=== PATIENT | male | born 1995 | race African-American/Black ===

== ENCOUNTER 2018-05-29 13:16 | Emergency (ER) | payer SELFPAY | END 2018-05-29 17:27 | disposition left against medical advice (07) | LOC: FTE 13:16 | DX: Z53.21 Procedure and treatment not carried out due to patient leaving prior to being seen by health care provider (principal) ==

== ENCOUNTER 2018-06-14 23:32 | Emergency (ER) | payer MEDICAID ==
[2018-06-15 04:20] LABS: ADD MAN DIFF? NO
[2018-06-15 04:22] LABS: WHITE BLOOD COUNT 6.8 10^3/ul (4.8-10.8)
[2018-06-15 04:22] LABS: BASOPHILS % 0.6 % (0.0-2.0); EOSINOPHILS # 0.4 10^3/ul (0.0-0.5); EOSINOPHILS % 5.4 % (0.0-7.0); HEMATOCRIT 40.2 % (42.0-52.0); HEMOGLOBIN 13.6 g/dl (14.0-18.0); LYMPHOCYTES # 2.2 10^3/ul (0.8-2.9); LYMPHOCYTES % 31.9 % (15.0-51.0); MEAN CORPUSCULAR HEMOGLOBIN 30.2 pg (29.0-33.0); MEAN CORPUSCULAR HGB CONC 33.8 g/dl (32.0-37.0); MEAN CORPUSCULAR VOLUME 89.3 fl (82.0-101.0); MEAN PLATELET VOLUME 9.2 fl (7.4-10.4); MONOCYTE # 0.8 10^3/ul (0.3-0.9); MONOCYTES % 12.1 % (0.0-11.0); NEUTROPHIL # 3.4 10^3/ul (1.6-7.5); NEUTROPHILS % 49.7 % (39.0-77.0); PLATELET COUNT 250 10^3/UL (140-415); RED CELL DISTRIBUTION WIDTH 13.6 % (11.5-14.5)
[2018-06-15 04:38] LABS: ANION GAP 12 (5-13); BLOOD UREA NITROGEN 11 mg/dl (7-20); CALCIUM 9.3 mg/dl (8.4-10.2); CARBON DIOXIDE 26 mmol/L (21-31); CHLORIDE 106 mmol/L (97-110); CREATININE 0.86 mg/dl (0.61-1.24); Estimated GFR > 60 mL/min (>60); GLUCOSE 90 mg/dl (70-220); POTASSIUM 3.4 mmol/L (3.5-5.1); SODIUM 144 mmol/L (135-144)
== END 2018-06-15 05:24 | disposition home or self-care (01) ==
LOC: FTE 23:32
DX: R42 Dizziness and giddiness (principal); R07.89 Other chest pain; J45.909 Unspecified asthma, uncomplicated; F17.210 Nicotine dependence, cigarettes, uncomplicated
CPT/HCPCS: 36415; 71045; 80048; 85025; 93005; 99285-25

== ENCOUNTER 2018-06-15 05:14 | Emergency (ER) | payer MEDICAID ==
[2018-06-15] MEDS: ONDANSETRON 4 MG INJ IV (08:01)
[2018-06-15] MEDS: SOD CHLORIDE 0.9% 1,000 ML IV (08:01)
[2018-06-15 08:07] LABS: ADD UMIC YES; UR ASCORBIC ACID NEGATIVE (NEGATIVE); UR BILIRUBIN (Dip) 1+ mg/dL (NEGATIVE); UR BLOOD (Dip) NEGATIVE (NEGATIVE); UR CLARITY SLIGHTLY CLOUDY (CLEAR); UR COLOR YELLOW (YELLOW); UR GLUCOSE (Dip) NEGATIVE (NEGATIVE); UR KETONES (Dip) NEGATIVE (NEGATIVE); UR LEUKOCYTE ESTERASE (Dip) NEGATIVE Leu/ul (NEGATIVE); UR MUCUS MODERATE /HPF (NONE SEEN); UR NITRITE (Dip) NEGATIVE (NEGATIVE); UR RBC 0 /HPF (0-5); UR SPECIFIC GRAVITY (Dip) 1.026 (1.003-1.030); UR TOTAL PROTEIN (Dip) 1+ mg/dl (NEGATIVE); UR UROBILINOGEN (Dip) 1+ mg/dL (NEGATIVE); UR WBC 1 /HPF (0-5)
[2018-06-15 08:21] LABS: BARBITURATES Negative (NEGATIVE); BENZODIAZEPINES Negative (NEGATIVE); CANNABINOIDS Negative (NEGATIVE); COCAINE Negative (NEGATIVE); OPIATES Negative (NEGATIVE)
[2018-06-15] MEDS: MECLIZINE 12.5 MG TAB PO (08:22)
[2018-06-15 08:33] LABS: AMPHETAMINE/METHAMPHETAMINE POSITIVE (NEGATIVE)
[2018-06-15] MEDS: ALBUTEROL 0.083% (NEB) 2.5 MG/3 ML AMP NEB (10:23)
[2018-06-15] MEDS: IPRATROPIUM (NEB) 0.5 MG/2.5 ML AMP NEB (10:23)
[2018-06-15] MEDS: ACETAMINOPHEN 325/HYDROC 7.5 15 ML CUP PO (11:04)
== END 2018-06-15 12:12 | disposition home or self-care (01) ==
LOC: E/R 05:14
DX: R55 Syncope and collapse (principal); J45.909 Unspecified asthma, uncomplicated; F17.210 Nicotine dependence, cigarettes, uncomplicated; T43.62 Poisoning by, adverse effect of and underdosing of amphetamines; R05 Cough
CPT/HCPCS: 70450; 80307; 81001; 94664; 96374; 99285-25

== ENCOUNTER 2018-06-15 17:20 | Emergency (ER) | payer MEDICAID | END 2018-06-15 18:37 | disposition home or self-care (01) | LOC: E/R 18:37 | DX: F15.10 Other stimulant abuse, uncomplicated (principal); R00.2 Palpitations; E87.6 Hypokalemia; J45.909 Unspecified asthma, uncomplicated; F17.210 Nicotine dependence, cigarettes, uncomplicated | CPT/HCPCS: 99283; Z7502 ==